=== PATIENT | female | born 1995 | race Caucasian/White ===

== ENCOUNTER → 2020-01-21 | Outpatient (CLI) | payer SELFPAY | END | disposition home or self-care (01) | LOC: LAB 11:30 → LAB SHORT 11:30 | PROVIDERS: Advanced Practice Midwife | DX: Z01.419 Encounter for gynecological examination (general) (routine) without abnormal findings (principal) | CPT/HCPCS: G0123 ==

== ENCOUNTER 2024-08-26 06:13 | Day surgery (SDC) | payer BC ==
[~2024-08-26] VITALS: Ht 167.6 cm; Wt 63.5 kg
[2024-08-26] MEDS ORDERED: Rocuronium Bromide 10 MG/ML 5ML Injection IV ONE (06:57)
[2024-08-26] MEDS ORDERED: Dexamethasone Sod Phos 10 MG/ML 1ML VIAL ONE (06:57)
[2024-08-26] MEDS ORDERED: Ondansetron HCl 2 MG / ML 2ML Vial ONE ×2 (06:57→10:01)
[2024-08-26] MEDS ORDERED: Lactated Ringer's 1,000 ML IV ONE ×2 (06:57→10:13)
[2024-08-26] MEDS ORDERED: propofoL 20 ML IV ONE (06:57)
[2024-08-26] MEDS ORDERED: FentaNYL Citrate 50 MCG/ML 2 ML Injection ONE (06:58)
[2024-08-26] MEDS ORDERED: Sugammadex Sodium 200 MG/2ML SDV (100 MG/ML) ONE (07:00)
[2024-08-26] MEDS ORDERED: Lidocaine 2%-Epineph 1:200000 20 ML SDV ONE (07:02)
[2024-08-26] MEDS ORDERED: EPINEPhrine HCl 1 MG / ML 30ML Vial ONE (07:02)
[2024-08-26] MEDS ORDERED: Tranexamic Acid 100 ML IV ONE (08:51)
--- NOTE | 2024-08-26 08:57 | NUR ---
08/26/24 0857 Earnestine Hatch 1GM TXA GIVEN IN OR BY ANESTHESIA @ [id number]
--- NOTE | 2024-08-26 09:50 | NUR ---
08/26/24 0999 DOUG ADLER PT DENIES PAIN TO NOSE, ONLY STATING THAT IT'S "A LITTLE TENDER." PT C/O SORE THROAT 11/26. PT OFFERED ICE WATER & POPSICLE TO HELP.
[2024-08-26 10:10] VITALS: BP 133/87
== END 2024-08-26 10:50 | disposition home or self-care (01) ==
LOC: ORSCSDS 06:13
PROVIDERS: Otolaryngology
PROC: 09DQ4ZZ Extraction of Right Maxillary Sinus, Percutaneous Endoscopic Approach (ICD-10-PCS; principal; 2024-08-26 07:30)
PROC: 09SM0ZZ Reposition Nasal Septum, Open Approach (ICD-10-PCS; principal; 2024-08-26 07:30)
DX: J32.0 Chronic maxillary sinusitis (principal); J34.2 Deviated nasal septum; J34.3 Hypertrophy of nasal turbinates
CPT/HCPCS: J0171; J1100; J2405; J2704; J3010; J7120